=== PATIENT | female | born 1960 | race American Indian/Alaskan Native ===

== ENCOUNTER 2017-09-06 19:34 | Emergency (ER) | payer SELFPAY ==
[2017-09-06 19:55] LABS: Basophils % (Auto) 0.3 % (0.0-1.8); Eosinophils % (Auto) 3.4 % (0.0-4.3); Hematocrit 44.3 % (30.3-42.9); Hemoglobin 14.7 gm/dl (10.1-14.3); Mean Corpuscular HGB Conc 33 % (30-34); Mean Corpuscular Hemoglobin 30 pg (28-32); Mean Corpuscular Volume 90 fl (79-97); Platelet Count 176 K/mm3 (140-440); Red Blood Count 4.92 M/mm3 (3.65-5.03); Red Cell Distribution Width 14.2 % (13.2-15.2); White Blood Count 8.7 K/mm3 (4.5-11.0)
[2017-09-06 20:22] LABS: Alanine Aminotransferase 9 units/L (7-56); Albumin 3.6 g/dL (3.9-5); Albumin/Globulin Ratio 1.2 %; Alkaline Phosphatase 89 units/L (35-129); Anion Gap 17 mmol/L; BUN/Creatinine Ratio 16; Blood Urea Nitrogen 11 mg/dL (7-17); Calcium 8.7 mg/dL (8.4-10.2); Carbon Dioxide 20 mmol/L (22-30); Chloride 108.2 mmol/L (98-107); Glucose 100 mg/dL (65-100); Lipase 59 units/L (13-60); Potassium 4.2 mmol/L (3.6-5.0); Sodium 141 mmol/L (137-145); Total Protein 6.5 g/dL (6.3-8.2)
[2017-09-06 20:45] LABS: Bacteria,Urine 4+ /HPF (Negative); Bilirubin,Urine NEG (Negative); Blood,Urine NEG (Negative); Ketones,Urine NEG (Negative); Leukocyte Esterase,Urine MOD (Negative); Mucus,Urine FEW /HPF; Nitrite,Urine NEG (Negative); Protein,Urine <15 mg/dL mg/dL (Negative); Urobilinogen,Urine < 2.0 mg/dL (<2.0)
[2017-09-07] MEDS ORDERED: ZOFRAN IV ONE (02:45)
[2017-09-07] MEDS ORDERED: NACL 0.9% 1000 ML 1,000 ML IV ONE (02:45)
--- NOTE | 2017-09-07 02:45 | Emergency Department Report ---
ED Abdominal Pain HPI - General Chief Complaint: Abdominal Pain Stated Complaint: RIGHT SIDE NUMBESS Time Seen by Provider: 09/07/17 02:40 Source: patient Mode of arrival: Wheelchair Limitations: No Limitations - History of Present Illness Initial Comments: Patient came in with right flank pain. -: Sudden Location: R flank Radiation: none Migration to: no migration Severity: moderate Severity scale (0 -10): 5 Quality: sharp Consistency: constant Improves With: medication Worsens With: nothing Associated Symptoms: denies other symptoms - Related Data Previous Rx's Medication Instructions Recorded Last Taken Type Acetaminophen/Codeine 1 - 2 tab PO Q6H PRN #25 tab 08/31/14 Unknown Rx [Acetaminophen-Codeine #3 TAB] Sulfamethoxazole/Trimethoprim 1 each PO BID #20 tablet 08/31/14 Unknown Rx [Bactrim Ds] HYDROcodone/APAP 5-325 [[place] 1 each PO Q6HR PRN #10 tablet 09/10/14 Unknown Rx 5/325] Promethazine [Phenergan] 25 mg PO Q6H PRN #10 tablet 09/10/14 Unknown Rx Acyclovir [Zovirax Tab] 800 mg PO QID 10 Days tab 05/23/15 Unknown Rx HYDROcodone/APAP 5-325 [[place] 1 each PO Q6HR PRN #20 tablet 05/23/15 Unknown Rx 5-325 mg TAB] Ciprofloxacin HCl [Ciprofloxacin 500 mg PO Q12H #20 tab 09/07/17 Unknown Rx TAB] traMADol [Ultram 50 MG tab] 50 mg PO Q8HR PRN #10 tablet 09/07/17 Unknown Rx Allergies Allergy/AdvReac Type Severity Reaction Status Date / Time aspirin Allergy Unknown Verified 05/23/15 22:31 Penicillins Allergy Itching Verified 05/23/15 22:31 ED Review of Systems ROS: Stated complaint: RIGHT SIDE NUMBESS Other details as noted in HPI Constitutional: denies: chills, fever Eyes: denies: eye pain, eye discharge, vision change ENT: denies: ear pain, throat pain Respiratory: denies: cough, shortness of breath, wheezing Cardiovascular: denies: chest pain, palpitations Endocrine: no symptoms reported Gastrointestinal: abdominal pain. denies: nausea, diarrhea Genitourinary: denies: urgency, dysuria, discharge Musculoskeletal: denies: back pain, joint swelling, arthralgia Skin: denies: rash, lesions Neurological: denies: headache, weakness, paresthesias Psychiatric: denies: anxiety, depression Hematological/Lymphatic: denies: easy bleeding, easy bruising ED Past Medical Hx - Past Medical History Previous Medical History?: No Hx Diabetes: No - Surgical History Past Surgical History?: No - Social History Smoking Status: Current Every Day Smoker Substance Use Type: None - Medications Home Medications: Home Medications Medication Instructions Recorded Confirmed Last Taken Type Acetaminophen/Codeine 1 - 2 tab PO Q6H PRN #25 tab 08/31/14 09/17/14 Unknown Rx [Acetaminophen-Codeine #3 TAB] Sulfamethoxazole/Trimethoprim 1 each PO BID #20 tablet 08/31/14 09/17/14 Unknown Rx [Bactrim Ds] HYDROcodone/APAP 5-325 [[place] 1 each PO Q6HR PRN #10 tablet 09/10/14 09/17/14 Unknown Rx 5/325] Promethazine [Phenergan] 25 mg PO Q6H PRN #10 tablet 09/10/14 09/17/14 Unknown Rx Acyclovir [Zovirax Tab] 800 mg PO QID 10 Days tab 05/23/15 Unknown Rx HYDROcodone/APAP 5-325 [[place] 1 each PO Q6HR PRN #20 tablet 05/23/15 Unknown Rx 5-325 mg TAB] Ciprofloxacin HCl [Ciprofloxacin 500 mg PO Q12H #20 tab 09/07/17 Unknown Rx TAB] traMADol [Ultram 50 MG tab] 50 mg PO Q8HR PRN #10 tablet 09/07/17 Unknown Rx ED Physical Exam - General Limitations: No Limitations General appearance: alert, in no apparent distress - Head Head exam: Present: atraumatic, normocephalic - Eye Eye exam: Present: normal appearance - ENT ENT exam: Present: mucous membranes moist - Neck Neck exam: Present: normal inspection - Respiratory Respiratory exam: Present: normal lung sounds bilaterally. Absent: respiratory distress - Cardiovascular Cardiovascular Exam: Present: regular rate, normal rhythm. Absent: systolic murmur, diastolic murmur, rubs, gallop - GI/Abdominal GI/Abdominal exam: Present: soft, tenderness (right CVA tenderness), normal bowel sounds - Extremities Exam Extremities exam: Present: normal inspection - Back Exam Back exam: Present: normal inspection - Neurological Exam Neurological exam: Present: alert, oriented X3 - Psychiatric Psychiatric exam: Present: normal affect, normal mood - Skin Skin exam: Present: warm, dry, intact, normal color. Absent: rash ED Course Vital Signs 09/07/17 09/07/17 09/07/17 02:41 02:46 03:51 Respiratory 18 Rate Blood Pressure 139/87 O2 Sat by Pulse 98 99 Oximetry 09/07/17 04:41 Respiratory 18 Rate Blood Pressure O2 Sat by Pulse 100 Oximetry - Reevaluation(s) Reevaluation #1: 09/07/17 06:47 Patient is sleeping comfortably in bed and she said that pain has resolved. She wants to be discharged home. ED Medical Decision Making - Lab Data Result diagrams: 09/06/17 19:47 09/06/17 19:47 - Differential Diagnosis UTI Critical care attestation.: If time is entered above; I have spent that time in minutes in the direct care of this critically ill patient, excluding procedure time. ED Disposition Clinical Impression: UTI (urinary tract infection) Qualifiers: Urinary tract infection type: acute cystitis Hematuria presence: without hematuria Qualified Code(s): N30.00 - Acute cystitis without hematuria Disposition: DC-01 TO HOME OR SELFCARE Is pt being admited?: No Does the pt Need Aspirin: No Condition: Stable Instructions: Urinary Tract Infection in Women (ED) Additional Instructions: Please follow up with your primary care doctor on Monday morning. Return to the emergency room if your condition worsens. Prescriptions: Ciprofloxacin HCl [Ciprofloxacin TAB] 500 mg PO Q12H #20 tab traMADol [Ultram 50 MG tab] 50 mg PO Q8HR PRN #10 tablet PRN Reason: Pain Referrals: PRIMARY CARE, [Primary Care Provider] - 3-5 Days
[2017-09-07] MEDS ORDERED: MORPHINE IV ONE (02:48)
--- NOTE | 2017-09-07 03:30 | Cat Scan Report ---
FINAL REPORT EXAM: CT ABDOMEN PELVIS WO CON HISTORY: ABD PAIN PAIN RADIATING THRU RT BUTTOCKS INTO BACK OF UPPER LEG AND UP INTO BACK TECHNIQUE: Routine axial imaging was obtained of the abdomen and pelvis without oral or IV contrast. Sagittal and coronal reconstructions were reviewed FINDINGS: There are mild chronic changes in both lung bases. Pleural fluid is not seen. There are no infiltrates. The liver, gallbladder, pancreas, spleen, and adrenal glands appear normal. The kidneys show no evidence of stones or hydronephrosis. The bowel loops are normal in caliber and course. The appendix appears normal. In the pelvis the uterus and bladder appear normal. Free fluid is not seen. There is no evidence of adenopathy. The skeletal structures reveal facet arthropathy changes bilaterally at the L4-5 and L5-S1 levels. IMPRESSION: No acute process in the abdomen and pelvis. No evidence of renal stones or obstructive uropathy. Bilateral facet arthropathy changes at the L4-5 and L5-S1 levels.
[2017-09-07 04:00] LABS: INR 0.98 (0.87-1.13)
[2017-09-07 04:41] VITALS: BP 139/87
== END 2017-09-07 07:43 | disposition home or self-care (01) ==
LOC: ED 19:34
DX: N30.00 Acute cystitis without hematuria (principal); F17.200 Nicotine dependence, unspecified, uncomplicated
CPT/HCPCS: 36415; 74176; 80053; 81001; 83690; 85025; 85610; 87076; 87086; 87186; 96361; 96374; 96375; 99284; J2270; J2405; J7030